=== PATIENT | male | born 1995 | race Caucasian/White ===

== ENCOUNTER 2021-11-10 10:54 | Emergency (ER) | payer MEDICAID ==
[~2021-11-10] VITALS: Ht 180.3 cm; Wt 72.0 kg
[2021-11-10 12:01] LABS: BASOPHILS % 0.7 % (0.0-2.0); EOSINOPHILS % 0.1 % (0.0-5.0); HEMATOCRIT. 33.9 % (42.0-52.0); HEMOGLOBIN. 11.4 g/dL (14.0-18.0); LYMPHOCYTES % 16.2 % (20.0-50.0); MEAN CORPUSCULAR HEMOGLOBIN 25.5 pg (28.0-32.0); MEAN PLATELET VOLUME 8.3 fl (7.4-10.4); MONOCYTES % 8.2 % (2.0-8.0); NEUTROPHILS % 74.8 % (40.0-76.0); PLATELET 247 x1000/uL (130-400); RED BLOOD CELL COUNT 4.46 mill/uL (4.7-6.1); RED CELL DISTRIBUTION WIDTH 19.3 % (11.6-14.6)
[2021-11-10 12:07] LABS: CHLORIDE 109 mEq/L (98-107)
[2021-11-10 12:14] LABS: ETHANOL BLOOD < 10 mg/dL
[2021-11-10 13:29] LABS: CLARITY URINE CLEAR (CLEAR); COLOR URINE YELLOW (YELLOW); KETONES URINE 1+ (NEGATIVE); LEUKOCYTE ESTERASE URINE 2+ (NEGATIVE); NITRITE URINE POSITIVE (NEGATIVE); OCCULT BLOOD URINE TRACE (NEGATIVE); PROTEIN URINE NEGATIVE (NEGATIVE); SPECIFIC GRAVITY URINE 1.004 (1.005-1.030); UROBILINOGEN URINE 0.2 E.U./dL (0.2-1.0)
[2021-11-10 13:45] LABS: *AMPHETAMINES SCREEN URINE NEGATIVE (NEGATIVE); *BARBITURATES SCREEN URINE NEGATIVE (NEGATIVE); *BENZODIAZEPINES SCREEN URINE NEGATIVE (NEGATIVE); *COCAINE SCREEN URINE NEGATIVE (NEGATIVE); CANNABINOID URINE SCREEN PRESUMTIVE POSITIVE (NEGATIVE); METHADONE URINE SCREEN NEGATIVE (NEGATIVE); OPIATES URINE SCREEN NEGATIVE (NEGATIVE); PHENCYCLIDINE URINE SCREEN NEGATIVE (NEGATIVE)
[2021-11-10] MEDS ORDERED: CEFTRIAXONE 1 G PREMIX 50 ML IV ONE (13:45)
[2021-11-10] MEDS ORDERED: ACETAMINOPHEN 325MG TABLET PO PRN (14:30)
[2021-11-10] MEDS ORDERED: ONDANSETRON HCL 4MG/2ML INJ IV PRN (14:30)
[2021-11-10] MEDS ORDERED: CEFTRIAXONE 1 G PREMIX 50 ML IV NR (14:30)
[2021-11-10] MEDS ORDERED: LORAZEPAM 2MG/ML CPJ IV PRN (14:30)
[2021-11-10] MEDS ORDERED: ENOXAPARIN 40MG/0.4ML SYR SUBCUT SCH (15:00)
[2021-11-10 20:12] VITALS: BP 119/80
[2021-11-11] MEDS ORDERED: CEFTRIAXONE 1,000 MG in DEXTROSE 5% WATER 50 ML IV SCH (09:00)
== END 2021-11-10 21:19 | disposition left against medical advice (07) ==
LOC: ER 10:54 → EDBEDREQTM 15:02 → EDBEDREQ 15:02 → ER 21:19 → ENRESERV 11-11 12:42 → CANRESERV 11-11 12:42 → CANBEDREQ 11-11 23:14
DX: N39.0 Urinary tract infection, site not specified (principal); F91.8 Other conduct disorders; Z20.822 Contact with and (suspected) exposure to COVID-19; F12.90 Cannabis use, unspecified, uncomplicated; G82.22 Paraplegia, incomplete; Z99.3 Dependence on wheelchair; Z87.828 Personal history of other (healed) physical injury and trauma
CPT/HCPCS: 36415; 80053; 80305; 80307; 80320; 80329; 81003; 85025; 87086; 96365; 96372; 99284; C9803; J0696; J1650; J2060; U0003; U0005; G0480

== ENCOUNTER 2021-11-10 22:10 | Inpatient (IN) | payer MEDICAID ==
[~2021-11-10] VITALS: Ht 180.3 cm; Wt 52.2 kg
[2021-11-11 00:11] LABS: BASOPHILS % 1.1 % (0.0-2.0); EOSINOPHILS % 0.7 % (0.0-5.0); HEMATOCRIT. 35.6 % (42.0-52.0); HEMOGLOBIN. 11.6 g/dL (14.0-18.0); LYMPHOCYTES % 28.9 % (20.0-50.0); MEAN CORPUSCULAR VOLUME 76.7 fL (80.0-94.0); NEUTROPHILS % 58.3 % (40.0-76.0); PLATELET 260 x1000/uL (130-400); RED BLOOD CELL COUNT 4.64 mill/uL (4.7-6.1); RED CELL DISTRIBUTION WIDTH 19.1 % (11.6-14.6)
[2021-11-11 00:18] LABS: CHLORIDE 107 mEq/L (98-107)
[2021-11-11 08:10] LABS: CLARITY URINE TURBID (CLEAR); COLOR URINE DARK YELLOW (YELLOW); KETONES URINE 4+ (NEGATIVE); LEUKOCYTE ESTERASE URINE 1+ (NEGATIVE); NITRITE URINE POSITIVE (NEGATIVE); OCCULT BLOOD URINE NEGATIVE (NEGATIVE); PROTEIN URINE 2+ (NEGATIVE); SPECIFIC GRAVITY URINE 1.026 (1.005-1.030); UROBILINOGEN URINE 0.2 E.U./dL (0.2-1.0)
[2021-11-11] MEDS ORDERED: ONDANSETRON HCL 4MG/2ML INJ IV PRN (10:15)
[2021-11-11] MEDS ORDERED: GUAIFENESIN 200MG/10ML SUGAR FREE UDC PO PRN (10:15)
[2021-11-11] MEDS ORDERED: NITROGLYCERIN 0.4MG TABLET SL SL PRN (10:15)
[2021-11-11] MEDS ORDERED: ACETAMINOPHEN 325MG TABLET PO PRN ×2 (10:15)
[2021-11-11] MEDS ORDERED: DOCUSATE SODIUM 100MG CAPSULE PO PRN (10:15)
[2021-11-11] MEDS ORDERED: CLONIDINE 0.1MG TABLET PO PRN (10:15)
[2021-11-11] MEDS ORDERED: NA PHOS,M-B/NA PHOS,DI-BA ENEMA 118ML PR PRN (10:15)
[2021-11-11] MEDS ORDERED: KETOROLAC 15MG/ML VIAL IV PRN (10:15)
[2021-11-11] MEDS ORDERED: IPRATROPIUM/ALBUTEROL 0.5-3(2.5)MG/3ML NEB NEB PRN (10:15)
[2021-11-11] MEDS ORDERED: MAGNESIUM/ALUMINUM HYDROXIDE/SIMETHICONE 30ML UDC PO PRN (10:15)
[2021-11-11] MEDS ORDERED: LEVOFLOXACIN 500MG PREMIX 100 ML IV SCH (11:00)
[2021-11-11] MEDS: ENOXAPARIN 40MG/0.4ML SYR SUBCUT SCH (11:00)
[2021-11-11 11:20] LABS: *AMPHETAMINES SCREEN URINE NEGATIVE (NEGATIVE); *BARBITURATES SCREEN URINE NEGATIVE (NEGATIVE); *BENZODIAZEPINES SCREEN URINE NEGATIVE (NEGATIVE); *COCAINE SCREEN URINE NEGATIVE (NEGATIVE); CANNABINOID URINE SCREEN PRESUMTIVE POSITIVE (NEGATIVE); METHADONE URINE SCREEN NEGATIVE (NEGATIVE); OPIATES URINE SCREEN NEGATIVE (NEGATIVE); PHENCYCLIDINE URINE SCREEN NEGATIVE (NEGATIVE)
[2021-11-11 12:00] VITALS: BP 144/74
[2021-11-11 14:53] LABS: VITAMIN B12 SERUM 224 pg/mL (211-911)
[2021-11-11 15:09] LABS: FOLIC ACID (FOLATE) SERUM > 20.00 ng/mL (>5.38)
[2021-11-11] MEDS: ZINC SULFATE 220 MG ( 50 ) CAPSULE PO SCH (15:45)
[2021-11-11] MEDS: CHOLECALCIFEROL (D3) 1000 UNIT TABLET PO SCH (15:45)
[2021-11-11] MEDS: LEVOFLOXACIN 500MG PREMIX 100 ML IV SCH (15:46)
[2021-11-11 20:00] VITALS: BP 142/72
[2021-11-11] MEDS ORDERED: ZOLPIDEM TARTRATE 5MG TABLET PO PRN (21:00)
[2021-11-11] MEDS: FAMOTIDINE 20MG TABLET PO SCH (22:44)
[2021-11-12] VITALS: BP 128/68
[2021-11-12 04:00] VITALS: BP 132/72
[2021-11-12 08:00] VITALS: BP 123/54
[2021-11-12 08:03] LABS: BASOPHILS % 1.2 % (0.0-2.0); HEMATOCRIT. 34.1 % (42.0-52.0); HEMOGLOBIN. 11.1 g/dL (14.0-18.0); LYMPHOCYTES % 23.5 % (20.0-50.0); MEAN CORPUSCULAR VOLUME 76.9 fL (80.0-94.0); MEAN PLATELET VOLUME 8.4 fl (7.4-10.4); MONOCYTES % 11.5 % (2.0-8.0); NEUTROPHILS % 61.8 % (40.0-76.0); PLATELET 236 x1000/uL (130-400); RED BLOOD CELL COUNT 4.43 mill/uL (4.7-6.1); RED CELL DISTRIBUTION WIDTH 18.9 % (11.6-14.6)
[2021-11-12 08:24] LABS: CHLORIDE 110 mEq/L (98-107)
[2021-11-12 08:33] LABS: PHOSPHORUS 3.4 mg/dL (2.5-4.9)
[2021-11-12] MEDS: CHOLECALCIFEROL (D3) 1000 UNIT TABLET PO SCH (08:45)
[2021-11-12] MEDS: ZINC SULFATE 220 MG ( 50 ) CAPSULE PO SCH (08:45)
[2021-11-12] MEDS: FAMOTIDINE 20MG TABLET PO SCH ×2 (08:45→21:00)
[2021-11-12] MEDS: ENOXAPARIN 40MG/0.4ML SYR SUBCUT SCH (11:00)
[2021-11-12] MEDS: LEVOFLOXACIN 500MG PREMIX 100 ML IV SCH (11:00)
[2021-11-12 16:00] VITALS: BP 116/73
[2021-11-13] MEDS: ZINC SULFATE 220 MG ( 50 ) CAPSULE PO SCH (08:27)
[2021-11-13] MEDS: FAMOTIDINE 20MG TABLET PO SCH (08:27)
[2021-11-13] MEDS: CHOLECALCIFEROL (D3) 1000 UNIT TABLET PO SCH (08:27)
[2021-11-14] MEDS ORDERED: LEVOFLOXACIN 500MG TABLET PO SCH (11:00)
== END 2021-11-13 08:49 | disposition left against medical advice (07) | DRG 720 ==
LOC: ER 22:10 → 6EST 11-11 08:51 → ENRESERV 11-11 09:27 → CANBEDREQ 11-11 09:30
PROVIDERS: ADMIT Internal Medicine; ATTEND Internal Medicine
DX: A41.9 Sepsis, unspecified organism (principal); G82.20 Paraplegia, unspecified; D63.8 Anemia in other chronic diseases classified elsewhere; E88.09 Other disorders of plasma-protein metabolism, not elsewhere classified; L97.919 Non-pressure chronic ulcer of unspecified part of right lower leg with unspecified severity; N39.0 Urinary tract infection, site not specified; L97.929 Non-pressure chronic ulcer of unspecified part of left lower leg with unspecified severity; Z53.29 Procedure and treatment not carried out because of patient's decision for other reasons
CPT/HCPCS: 36415; 80053; 80305; 81003; 82607; 82746; 83540; 83550; 83735; 84100; 84443; 85025; 87077; 87186; 93970; 99285; J1650; J1956